=== PATIENT | male | born 1955 | race Caucasian/White ===

== ENCOUNTER 2022-12-15 16:09 | Emergency (ER) | payer OTHER ==
[2022-12-15] MEDS ORDERED: Sodium Chloride 0.9% 10 ML Syringe FLUSH PRN (16:20)
[2022-12-15] MEDS ORDERED: Sodium Chloride 0.9% 1,000 ML IV ONE (16:20)
[2022-12-15] MEDS ORDERED: Potassium Chloride 20 MEQ Tab.ER PO ONE (16:20)
[2022-12-15 16:31] LABS: BASOPHILS ABSOLUTE AUTO 0.04 K/mm3 (0.01-0.08); BASOPHILS PERCENT AUTO 0.3 % (0.1-1.2); EOSINOPHILS ABSOLUTE AUTO 0.14 K/mm3 (0.04-0.54); EOSINOPHILS PERCENT AUTO 0.9 (0.8-7.0); HEMATOCRIT 34.2 % (40.1-51.0); HEMOGLOBIN 10.8 gm/dl (13.7-17.5); IMMATURE GRAN ABSOLUTE AUTO 0.04 K/mm3 (0.00-0.10); IMMATURE GRAN PERCENT AUTO 0.3 % (<=1.0); LYMPHOCYTES ABSOLUTE AUTO 1.15 K/mm3 (1.32-3.57); LYMPHOCYTES PERCENT AUTO 7.4 % (21.8-53.1); MEAN CORPUSCULAR HEMOGLOBIN 31.2 pg (25.7-32.2); MEAN CORPUSCULAR HGB CONC 31.6 g/dl (32.2-35.5); MEAN CORPUSCULAR VOLUME 98.8 fl (79.0-92.2); MEAN PLATELET VOLUME 8.9 fl (9.4-12.3); MONOCYTES ABSOLUTE AUTO 1.34 K/mm3 (0.30-0.82); MONOCYTES PERCENT AUTO 8.6 % (5.3-12.2); NEUTROPHILS ABSOLUTE AUTO 12.93 K/mm3 (1.78-5.38); NEUTROPHILS PERCENT AUTO 82.5 % (34.0-67.9); RED BLOOD CELL COUNT 3.46 M/mm3 (4.63-6.08); WHITE BLOOD CELL COUNT,WBC 15.64 K/mm3 (4.23-9.07)
[2022-12-15] MEDS: Potassium Chloride 10 MEQ in Premix Bag 1 BAG IV SCH ×2 (16:40→17:42)
[2022-12-15 16:41] LABS: PLATELET COUNT,PLT 112 K/mm3 (163-337)
[2022-12-15 16:54] LABS: A/G RATIO 0.4 (1-2); ALBUMIN 2.3 g/dl (3.4-5.0); ANION GAP 10.4 (5-15); BILIRUBIN TOTAL 1.1 mg/dL (0.2-1.0); BUN/CREATININE RATIO 9.6 (14-18); CALCIUM 8.5 mg/dL (8.5-10.1); CREATININE 2.3 mg/dL (0.7-1.3); EST CRCL DRUG DOSING (CG) 34.1 mL/min; MAGNESIUM 1.6 mg/dL (1.8-2.4); PROTEIN TOTAL,TP 8.4 g/dl (6.4-8.2)
[2022-12-15 17:16] LABS: POTASSIUM,K 2.4 mEq/L (3.5-5.1)
[2022-12-15 19:10] VITALS: BP 107/65; PULSE 96
== END 2022-12-15 18:55 | disposition home or self-care (01) ==
LOC: JD.ED 16:09
DX: E87.6 Hypokalemia (principal); Z88.8 Allergy status to other drugs, medicaments and biological substances; Z79.82 Long term (current) use of aspirin; Z79.02 Long term (current) use of antithrombotics/antiplatelets; Z79.899 Other long term (current) drug therapy
CPT/HCPCS: 36415; 80053; 83735; 85025; 96361; 96365; 96376; 99284; A9270; J3480; J3490; J7030